=== PATIENT | female | born 1930 | race Caucasian/White ===

== ENCOUNTER 2019-05-20 17:33 | Emergency (ER) | payer MEDICARE, BC ==
[2019-05-20] MEDS ORDERED: ASPIRIN 325 MG TABLET PO ONE (17:46)
--- NOTE | 2019-05-20 17:56 | Emergency Department Record ---
History of Present Illness - General Chief Complaint: Chest Pain Stated Complaint: EPIGASTRIC PAIN Time Seen by Provider: 05/20/19 17:41 Source: Patient, Family Mode of Arrival: Ambulatory Limitations: No limitations - History of Present Illness Initial Comments: The patient is here due to a dull aching retrosternal CP which woke her up at 4am. She states the pain has been constant and is nonradiating. The patient denies any SOB, ASHWIN, sweating, or nausea and the patient also denies any AP, vomiting, or diarrhea. 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 MD Complaint: Chest pain Onset/Timin -: Hour(s) Pain Location: Substernal Pain Radiation: None Quality: Dull Consistency: Constant Improves With: Nothing Worsens With: Nothing Context: Recent illness - Related Data Home Medications Medication Instructions Recorded Confirmed Last Taken Aspirin [Aspir-Low] 81 mg PO DAILY 05/20/19 05/20/19 05/20/19 Benzonatate [Tessalon Perle] 100 mg PO TID 05/20/19 05/20/19 05/20/19 Carvedilol [Coreg] 3.125 mg PO BID 05/20/19 05/20/19 05/20/19 Clopidogrel Bisulfate [Clopidogrel] 75 mg PO DAILY 05/20/19 05/20/19 05/20/19 Estrogen,Con/M-Progest Acet 1 each PO DAILY 05/20/19 05/20/19 05/20/19 [Prempro 0.3 mg-1.5 mg Tablet] Furosemide [Lasix] 20 mg PO BID 05/20/19 05/20/19 05/20/19 Glipizide [Glipizide ER] 2.5 mg PO DAILY 05/20/19 05/20/19 05/20/19 Levothyroxine Sodium [Synthroid] 50 mcg PO DAILY 05/20/19 05/20/19 05/20/19 Lisinopril 20 mg PO DAILY 05/20/19 05/20/19 05/20/19 Metformin HCl 500 mg PO BID 05/20/19 05/20/19 05/20/19 Potassium Chloride 10 meq PO DAILY 05/20/19 05/20/1920 Prednisone [Prednisone 10Mg] 10 mg PO BID 05/20/19 05/20/19 05/20/19 Rosuvastatin Calcium [Crestor] 20 mg PO QHS 05/20/19 05/20/19 05/19/19 Ubidecarenone [Coenzyme Q10] 200 mg PO DAILY 05/20/19 05/20/19 05/20/19 Allergies Allergy/AdvReac Type Severity Reaction Status Date / Time No Known Drug Allergies Allergy Verified 05/20/19 17:53 Travel Screening - Travel/Exposure Within Last 30 Days Have you traveled within the last 30 days?: No - Travel/Exposure Within Last Year Have you traveled outside the [place] in the last year?: No - Additonal Travel Details Have you been exposed to anyone with a communicable illness?: No Review of Systems Constitutional: Denies: Chills, Fever Eyes: Denies: Eye discharge ENT: Denies: Congestion Respiratory: Denies: Cough, Dyspnea Cardiovascular: Reports: Chest pain Endocrine: Denies: Fatigue Gastrointestinal: Denies: Nausea Genitourinary: Denies: Dysuria Musculoskeletal: Denies: Arthralgia Skin: Denies: Bruising Past Medical History - SOCIAL HISTORY Smoking Status: Former smoker Alcohol Use: None Drug Use: None - RESPIRATORY Hx Respiratory Disorders: No - CARDIOVASCULAR Hx Cardio Disorders: Yes Hx Abnormal EKG: Yes (LBBB) 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) Hx Hypertension: Yes - NEURO Hx Neuro Disorders: Yes Hx CVA: Yes (2019) - GI Hx GI Disorders: No - Hx Genitourinary Disorders: No - ENDOCRINE Hx Endocrine Disorders: Yes Hx Diabetes: Yes (te 2) Hx Thyroid Disease: Yes - MUSCULOSKELETAL Hx Musculoskeletal Disorders: Yes - PSYCH Hx Psych Problems: No - HEMATOLOGY/ONCOLOGY Hx Hematology/Oncology Disorders: No Family Medical History Any Significant Family History?: No Physical Exam - General General Appearance: Alert, Oriented x3, Cooperative, No acute distress - Head Head exam: Atraumatic, Normocephalic - Eye Eye exam: Normal appearance, PERRL - ENT Throat exam: Normal inspection. negative: Tonsillar erythema, Tonsillar exudate - Neck Neck exam: Normal inspection, Full ROM. negative: Tenderness - Respiratory Respiratory exam: Normal lung sounds bilaterally. negative: Respiratory distress - Cardiovascular Cardiovascular Exam: Regular rate, Normal rhythm, Normal heart sounds. negative: Diastolic murmur, Systolic murmur - GI/Abdominal GI/Abdominal exam: Soft, Normal bowel sounds. negative: Rebound, Rigid, Tenderness - Extremities Extremities exam: Normal inspection, Full ROM, Normal capillary refill. negative: Tenderness - Back Back exam: Reports: Normal inspection - Neurological Neurological exam: Alert, Normal gait. negative: Abnormal gait, Motor sensory deficit Course Vital Signs 05/20/19 17:40 Temperature 98.3 F Pulse Rate 86 Respiratory 16 Rate Blood Pressure 134/77 Pulse Ox 95 - Reevaluation(s) Reevaluation #1: Further hx was obtained from [facility] and it appears the patient does have multiple risk factors for CAD including a hx of an ischemic cardiomyopathy with a large defect anterior lateral on a nuclear test in October of 2018. She did not have a heart cath at that time. 05/20/19 18:12 Reevaluation #2: The patient's 4/10 discomfort was relieved with one SL NTG. She is presently pain free. 05/20/19 18:23 Reevaluation #3: The patient is doing very well at this time and remains pain free. I did discuss the case with Dr. Hobbs at [facility] and he does accept the patient as a direct admission. 05/20/19 18:48 Medical Decision Making - Data Complexity MDM Data: Labs Ordered and/or Reviewed, X-Ray Ordered and/or Reviewed, EKG Ordered and/or Reviewed - Lab Data Result diagrams: 05/20/19 17:54 05/20/19 17:54 - EKG Data -: EKG Interpreted by Me EKG: LBBB - Radiology Data Radiology results: Report reviewed (CXR: Neg for acute changes.) Disposition Disposition: Transfer Clinical Impression: Unstable angina Disposition: Acute Care Hospital Transfer Transfer To: [facility] Reason For Transfer: CP Accepting Physician: Voice Time Discussed w/Accepting Physician: 18:50 Condition: (2) Stable Forms: Patient Portal Access Time of Disposition: 18:50 Quality - Quality Measures Quality Measures: N/A - Blood Pressure Screening View Details: Yes Does Patient Have Any of the Following: No Blood Pressure Classification: Pre-Hypertensive BP Reading Systolic Measurement: 134 Diastolic Measurement: 77 Screening for High Blood Pressure: < Pre-Hypertensive BP, F/U Documented > [[id number]] Pre-Hypertensive Follow-up Interventions: Referral to alternative/primary care provider.
[2019-05-20] MEDS ORDERED: NITROGLYCERIN 0.4MG SL TABLET #25 BTL SL ONE (17:58)
[2019-05-20] MEDS ORDERED: 0.9 % SODIUM CHLORIDE 1,000 ML BAG IV ONE (17:58)
[2019-05-20 18:04] LABS: ABSOLUTE NEUTROPHIL COUNT 10.65; BASO % 0.2 % (0-6); EOS % 0.2 % (0-6); GRAN % 79.3 % (47-80); HEMOGLOBIN 14.4 gm/dl (11.6-16.0); LYMPH % 10.8 % (16-45); MEAN CELL VOLUME 88.8 fl (81-97); MEAN CORPUSCULAR HEMOGLOBIN 28.4 pg (27-33); MEAN PLATELET VOLUME 10.5 fl (7.4-10.4); MONO % 9.5 % (0-9); PLATELET COUNT 325 K/uL (130-400); RED BLOOD COUNT 5.07 M/uL (3.80-5.40); RED CELL DISTRIBUTION WIDTH 13.3 % (11.5-14.5); WHITE BLOOD COUNT W/O DIFF 13.4 K/uL (4.2-12.2)
[2019-05-20 18:17] LABS: PARTIAL THROMBOPLASTIN TIME 25.7 SECONDS (24.5-39.1); PROTHROMBIN TIME (PATIENT) 10.3 SECONDS (9.5-12.1)
[2019-05-20 18:18] LABS: BLOOD UREA NITROGEN 23 mg/dL (8-23); CREATININE 0.9 mg/dL (0.5-0.9); EST GLOMERULAR FILTRATION RATE > 60 mL/min
[2019-05-20 18:19] LABS: TOTAL PROTEIN 7.5 g/dL (6.6-8.7)
[2019-05-20 18:21] LABS: GLUCOSE,RANDOM 187 mg/dL (74-109)
[2019-05-20 18:24] LABS: ALB/GLOB RATIO 1.3 (1.1-1.8); ALBUMIN 4.2 g/dL (4.0-5.0); ALKALINE PHOSPHATASE 52 U/L (35-104); ALT/SGPT 11 U/L (<33); AST/SGOT 13 U/L (10.0-35.0)
[2019-05-20] MEDS ORDERED: FUROSEMIDE IV 20MG/2ML VIAL IVP ONE (18:36)
--- NOTE | 2019-05-20 18:37 | RADIOLOGY REPORT ---
EXAMINATION: CHEST 1 VIEW EXAM DATE: 05/20/2019 6:06 PM TECHNIQUE: Portable frontal chest radiograph INDICATION: CP COMPARISON: None. FINDINGS: The cardiomediastinal silhouette is normal. No focal lung consolidation or pulmonary edema. No pneumothorax or appreciable pleural effusion. Reverse left shoulder arthroplasty. IMPRESSION: No evidence of acute pulmonary process. Dictated by: Jayden Roque MD on 05/20/2019 6:33 PM. .
== END 2019-05-20 19:46 | disposition short-term general hospital (02) ==
LOC: ER 17:33
DX: I20.0 Unstable angina (principal); I10 Essential (primary) hypertension; I25.2 Old myocardial infarction; Z87.891 Personal history of nicotine dependence; E11.9 Type 2 diabetes mellitus without complications
CPT/HCPCS: 71045; 80053; 83690; 83880; 84484; 85025; 85610; 85730; 93005; 93010; 96374; 99285; J1940; J7030